=== PATIENT | male | born 1940 | race Native Hawaiian/Other Pacific Islander ===

== ENCOUNTER 2020-09-23 08:47 | Outpatient (CLI) | payer MEDICARE ==
[2020-09-23 15:06] LABS: BASOPHILS % (AUTO) 0.4 %; EOSINOPHILS # (AUTO) 0.1 10^3/uL (0.0-0.7); EOSINOPHILS % (AUTO) 2.7 %; HGB - HEMOGLOBIN 15.5 g/dL (14.0-18.0); LYMPHOCYTES # (AUTO) 1.3 10^3/uL (1.5-3.5); MEAN CORPUSCULAR HEMOGLOBIN 30.9 pg (27.0-31.0); MEAN CORPUSCULAR HGB CONC 32.3 g/dL (32.0-36.0); MEAN CORPUSCULAR VOLUME 95.8 fL (80.0-94.0); MEAN PLATELET VOLUME 10.2 fL (7.4-11.4); MONOCYTES # (AUTO) 0.5 10^3/uL (0.0-1.0); MONOCYTES % (AUTO) 10.9 %; NEUTROPHILS # (AUTO) 2.9 10^3/uL (1.5-6.6); NEUTROPHILS % (AUTO) 59.8 %; PLT - PLATELET COUNT 156 10^3/uL (130-450); RED BLOOD COUNT 5.01 10^6/uL (4.70-6.10); RED CELL DISTRIBUTION WIDTH 13.9 % (12.0-15.0); WHITE BLOOD COUNT 4.9 x10^3/uL (4.8-10.8)
[2020-09-23 15:24] LABS: BILIRUBIN,URINE NEGATIVE (NEGATIVE); GLUCOSE, URINE (UA) NEGATIVE (NEGATIVE); KETONES,URINE (UA) NEGATIVE (NEGATIVE); LEUKOCYTE ESTERASE, URINE NEGATIVE (NEGATIVE); NITRITE,URINE NEGATIVE (NEGATIVE); OCCULT BLOOD,URINE NEGATIVE (NEGATIVE); PROTEIN,URINE NEGATIVE (NEGATIVE); UROBILINOGEN,URINE 0.2 (NORMAL) E.U./dL (NORMAL)
[2020-09-23 15:41] LABS: CREATININE,URINE 134.6 mg/dL; MICROALBUM/CREATININE RATIO,UR 4.5 ug/mg (<30.0); MICROALBUMIN,URINE 0.6 mg/dL (0-300.0)
[2020-09-23 15:48] LABS: BACTERIA,URINE None Seen /HPF (None Seen); CLARITY,URINE CLEAR (CLEAR); RBC,URINE None Seen /HPF (0-5); SQUAMOUS EPITHELIAL CELL,UR NONE SEEN (<= Few)
[2020-09-23 15:54] LABS: ALBUMIN 4.3 g/dL (3.2-5.5); ALBUMIN/GLOBULIN RATIO 1.3 (1.0-2.2); ALKALINE PHOSPHATASE 33 IU/L (42-121); ALT ALANINE AMINOTRANSFERASE 20 IU/L (10-60); AST ASPARTATE AMINOTRANSFERASE 18 IU/L (10-42); BILIRUBIN,TOTAL 0.9 mg/dL (0.2-1.0); BUN - BLOOD UREA NITROGEN 21 mg/dL (6-20); CALCIUM 9.2 mg/dL (8.5-10.3); CARBON DIOXIDE - CO2 27 mmol/L (21-32); CHLORIDE 104 mmol/L (101-111); CHOL/HDL RATIO 2.7 (<5.0); CHOLESTEROL 150 mg/dL; GLUCOSE 117 mg/dL (70-100); HDL CHOLESTEROL 56 mg/dL; LDL CHOLESTEROL,CALCULATED 74 mg/dL; LDL/HDL RATIO 1.3 (<3.6); TOTAL PROTEIN 7.7 g/dL (6.7-8.2); VLDL CHOLESTEROL 20 mg/dL
== END 2020-09-23 08:48 | disposition home or self-care (01) ==
LOC: LAB.S 08:47
PROVIDERS: ATTEND Internal Medicine
DX: E78.00 Pure hypercholesterolemia, unspecified (principal); E11.9 Type 2 diabetes mellitus without complications; R35.0 Frequency of micturition
CPT/HCPCS: 36415; 80051; 80053; 80061; 81001; 82043; 82310; 82565; 82570; 82947; 83036; 83721; 84443; 84450; 84520; 85025; 87086